=== PATIENT | male | born 1935 | race Caucasian/White ===

== ENCOUNTER 2016-05-09 09:02 | Day surgery (SDC) | payer MEDICARE ==
[~2016-05-09] VITALS: Ht 182.9 cm; Wt 90.7 kg
[~2016-05-09 09:02] MED LIST: ASCO10007 PO; ASCO100089 PO; ASPI-628 PO; ASPI-973 PO; ECHI350C PO; FISH400C2 PO; GLUC1CAP8 PO; LUTE20TA PO; MULT-666 PO; NEURO PS PO; OMEP20CA11 PO; Sodium Chloride LOK Flush 10 mL Syringe IV PRN; VIT1TABL83 PO; VITA1TAB94 PO; [UNRECOGNIZED DRUG - CODE] PO; [UNRECOGNIZED DRUG - OTHER] PO; fentaNYL-PF 50 mCg/mL 2 mL Inj IVPUSH PRN
[2016-05-09 09:50] VITALS: BP 145/95; PULSE 64; RESP 16; O2SAT 98
[2016-05-09] MEDS: 0.9% Sodium Chloride 1,000 ML IV SCH ×2 (10:01→10:08)
[2016-05-09 11:09] VITALS: BP 130/78; PULSE 69; RESP 14; O2SAT 97
[2016-05-09 11:27] VITALS: BP 124/79; PULSE 91; RESP 16; O2SAT 94
--- NOTE | 2016-05-09 14:09 | ENDO ---
[address] [address] ENDOSCOPY PROCEDURE PATIENT: MAYURI WASHINGTON : 1935 MR#: [id number] ADMIT: 05/09/2016 JOB ID: [id number] DATE: 05/09/2016 PREOPERATIVE DIAGNOSIS: Gratn esophagitis. POSTOPERATIVE DIAGNOSES: 1. Grant esophagitis. 2. Hiatal hernia. OPERATION: Upper endoscopy with multiple biopsies for Grant esophagitis. SURGEON: Satish Polk MD. 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 He is here for his surveillance endoscopy with biopsy. FINDINGS: He had a long segment of Grant's ranging from 27 cm from the incisors to 39 cm from the incisors. Four biopsies were taken at every 2 cm during that segment. There were gross Grant changes. The Grant changes were confluent distally and in flame like projections proximally. There was no ulceration. There was no nodularity, no gross tumor. His esophageal hiatus was at 40 cm. The GE junction at 35 cm. Retroflexed views of the cardia revealed a Hill grade II flap valve. The retroflexed views showed no evidence of neoplasia. The fundus, body and antrum of the stomach were grossly normal. The pylorus and duodenum into the proximal third portion of the duodenum was normal. DESCRIPTION OF PROCEDURE: The procedure and sedation plan was discussed with the patient and nursing staff, and a procedural time-out was held. He gargled viscous Xylocaine. He then received 5 mg of Versed and 100 mcg of fentanyl. The Olympus GIF H 180 J video endoscope was passed transorally, advanced into the proximal third portion of the duodenum, then withdrawn with results as stated above. Retroflexed views of the cardia were obtained and then I withdrew the scope back up into the esophagus and from the GE junction up to 27 cm every 2 cm four biopsies were taken and submitted to Pathology. The patient tolerated the procedure well. There were no apparent complications. PLAN: If this is simple Grant's without dysplasia, he will need a repeat endoscopy with biopsy in two years.
--- NOTE | 2016-05-10 15:28 | PATH ---
SURGICAL PATHOLOGY Attending Physician:Jozef [place] CASE STATUS: Signed Out PATIENT NAME: MAYURI WASHINGTON PID: [id number] : 1935 DATE COLLECTED:05/09/2016 17:32 SPECIMEN: 1: Esophagus, Biopsy 2: Esophagus, Biopsy 3: Esophagus, Biopsy 4: Esophagus, Biopsy 5: Esophagus, Biopsy CLINICAL HISTORY: 1). ESOPHAGUS AT 35CM 2). ESOPHAGUS AT 33CM 3). ESOPHAGUS AT 31CM 4). ESOPHAGUS AT 29CM 5). ESOPHAGUS AT 27CM FINAL DIAGNOSIS: 1. 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 Negative for dysplasia and malignancy. 2. 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 Negative for dysplasia and malignancy. 3-5. 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 Negative for dysplasia and malignancy. ICD10 K22.70 GROSS DESCRIPTION: The specimen is received in five formalin filled containers labeled with the patient's name. 1). The specimen is sublabeled "esophagus at 35 CM" and consists of 3 portions of tissue which aggregate to 0.4 x 0.4 x 0.3 CM. The specimen is entirely submitted in cassette 1A. 2). The specimen is sublabeled "esophagus at 33 CM" and consists of 3 portions of tissue which aggregate to 0.3 x 0.3 x 0.3 CM. The specimen is entirely submitted in cassette 2A. 3). The specimen is sublabeled "esophagus at 31 CM" and consists of 3 portions of tissue which aggregate to 0.4 x 0.3 x 0.3 CM. The specimen is entirely submitted in cassette 3A. 4). The specimen is sublabeled "esophagus at 29 CM" and consists of 4 tiny portions of tissue which aggregate to 0.3 x 0.3 x 0.2 CM. The specimen is entirely submitted in cassette 4A. 5). The specimen is sublabeled "esophagus at 27 CM" and consists of 3 portions of tissue which aggregate to 0.3 x 0.3 x 0.3 CM. The specimen is entirely submitted in cassette 5A. 05/09/2016 [facility] ICD-9 CODES: CPT CODES: 1: 81749 2: 96162 3: 97386 4: 47954 5: 59776 Electronically Signed Out Asya Erickson MD [facility] [address], [place] [address] Technical component performed at [facility], [address], [place], [address]
== END 2016-05-09 23:59 | disposition home or self-care (01) ==
LOC: END 09:02
PROVIDERS: ATTEND Surgery
DX: K22.70 Barrett's esophagus without dysplasia (principal); K44.9 Diaphragmatic hernia without obstruction or gangrene; Z87.891 Personal history of nicotine dependence; Z85.820 Personal history of malignant melanoma of skin; Z79.82 Long term (current) use of aspirin
CPT/HCPCS: 43239; 88305; 99153; G0500; J7030